=== PATIENT | male | born 1940 | race Caucasian/White ===

== ENCOUNTER 2016-07-28 08:04 | Day surgery (SDC) | payer MEDICARE ==
--- NOTE | ~2016-07-28 | EGD ---
EGD REPORT [facility] [address] [address] NAME: CATHI LI JR : 40 STATUS : REG [facility] [place] PAT#: [id number] AGE: 75 ADM/REG DATE : 07/28/16 MR#: [id number] REPORT SERV DATE: 07/28/16 DICTATED BY: ROBIN KWONG DATE: 07/28/16 REPORT STATUS : Draft [facility]ANS[facility]IBED BY: [facility] DATE: 07/28/16 Endoscopy Center Patient Name: Cathi Li Date of : 1940 Attending MD: ROBIN KWONG MD Procedure Date No Time: 07/28/2016 Procedure: Upper GI endoscopy Indications: Dysphagia, Nausea Referring MD: MYRTLE SOW Medicines: Propofol per Anesthesia Procedure: Pre-Anesthesia Assessment: - After reviewing the risks and benefits, the patient was deemed in satisfactory condition to undergo the procedure. - Prior to the procedure, a History and Physical was performed, and patient medications and allergies were reviewed. The patient's tolerance of previous anesthesia was also reviewed. The risks and benefits of the procedure and the sedation options and risks were discussed with the patient. All questions were answered, and informed consent was obtained. Prior Anticoagulants: The patient has taken no previous anticoagulant or antiplatelet agents. ASA Grade Assessment: III - A patient with severe systemic disease. After reviewing the risks and benefits, the patient was deemed in satisfactory condition to undergo the procedure. After obtaining informed consent, the endoscope was passed under direct vision. Throughout the procedure, the patient's blood pressure, pulse, and oxygen saturations were monitored continuously. The GIF [id number] was introduced through the mouth, and advanced to the pylorus. The upper GI endoscopy was performed with difficulty due to abnormal anatomy with mild pyloric stenosis and a dilated, J-shaped stomach which made pyloric intubation difficult. Successful completion of the procedure was aided by applying abdominal pressure. The patient tolerated the procedure well. Findings: A mild Schatzki ring (acquired) was found at the gastroesophageal junction. A guidewire was placed and the scope was withdrawn. Dilation was performed with a Savary dilator with mild resistance at 48 Fr. Estimated blood loss: none. A 1 cm hiatus hernia was present. A benign-appearing, intrinsic mild stenosis was found at the pylorus. This was non-traversed. It didn't seem to be too tight for intubation EGD REPORT [facility] [address] [facility] [place]. [address] NAME: CATHI LI JR : 40 STATUS : REG [facility]#: [id number] AGE: 75 ADM/REG DATE : 07/28/16 MR#: [id number] REPORT SERV DATE: 07/28/16 DICTATED BY: ROBIN KWONG DATE: 07/28/16 REPORT STATUS : Draft TRANSCRIBED BY: [facility] DATE: 07/28/16 but the looping in the stomach prevented it. The stomach was somewhat dilated and J-shaped with a small amount of retained food debris. Looping of the endoscope prevented pyloric intubation even with splinting of the abdomen. Diffuse moderate inflammation characterized by erosions and erythema was found in the duodenal bulb via a window view through the pylorus. Impression: - Mild Schatzki ring. Dilated. - Hiatus hernia. - Gastric stenosis was found at the pylorus. - Duodenitis. - Chronic NSAID and opioid use. Recommendation: - Discharge patient to home (ambulatory). - Return to previous diet with smaller, more frequent feedings. - Discontinue Aleve and other NSAID medication. - Continue present medications including Prilosec (omeprazole) 40 mg daily before meal. - Do an upper GI series at appointment to be scheduled. - Perform a colonoscopy today. - Patient has a contact number available for emergencies. The signs and symptoms of potential delayed complications were discussed with the patient. Return to normal activities tomorrow. Written discharge instructions were provided to the patient. 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 All rights reserved. The codes documented in this report are preliminary and upon paint supervisor review may be revised to meet current compliance requirements. EGD REPORT [facility] [address] [address] NAME: CATHI LI JR : 40 STATUS : REG [facility] PAT#: [id number] AGE: 75 ADM/REG DATE : 07/28/16 MR#: [id number] REPORT SERV DATE: 07/28/16 DICTATED BY: ROBIN KWONG. DATE: 07/28/16 REPORT STATUS : Draft TRANSCRIBED BY: [employer] DATE: 07/28/16 ROBIN KWONG MD 07/28/2016 10:36 AM This report has been signed electronically. Number of Addenda: 0 Note Initiated On: 07/28/2016 10:12 AM Scope Withdrawal Time 0 hours 0 minutes 0 seconds [address] [id number]
--- NOTE | ~2016-07-28 | EGD ---
EGD REPORT [facility] [address] [place] [address] NAME: CATHI LI JR : 40 STATUS : REG [facility]#: [id number] AGE: 75 ADM/REG DATE : 07/28/16 MR#: [id number] REPORT SERV DATE: 07/28/16 DICTATED BY: ROBIN KWONG DATE: 07/28/16 REPORT STATUS : Draft [facility]ANSCRIBED BY: [facility] DATE: 07/28/16 Endoscopy Center Patient Name: Cathi Li Date of : 1940 Attending MD: ROBIN KWONG MD Procedure Date No Time: 07/28/2016 Procedure: Colonoscopy Indications: Screening for colorectal malignant neoplasm, This is the patient's first colonoscopy, Incidental abdominal pain noted, Incidental constipation noted Referring MD: MYRTLE SOW Medicines: Propofol per Anesthesia Complications: No immediate complications. Estimated blood loss: None. Procedure: Pre-Anesthesia Assessment: - After reviewing the risks and benefits, the patient was deemed in satisfactory condition to undergo the procedure. - Prior to the procedure, a History and Physical was performed, and patient medications and allergies were reviewed. The patient's tolerance of previous anesthesia was also reviewed. The risks and benefits of the procedure and the sedation options and risks were discussed with the patient. All questions were answered, and informed consent was obtained. Prior Anticoagulants: The patient has taken no previous anticoagulant or antiplatelet agents. ASA Grade Assessment: III - A patient with severe systemic disease. After reviewing the risks and benefits, the patient was deemed in satisfactory condition to undergo the procedure. After I obtained informed consent, the scope was passed under direct vision. Throughout the procedure, the patient's blood pressure, pulse, and oxygen saturations were monitored continuously. The CF [id number] was introduced through the anus and advanced to the cecum, identified by appendiceal orifice and ileocecal valve. The colonoscopy was somewhat difficult due to a tortuous colon and the patient's body habitus. Successful completion of the procedure was aided by straightening and shortening the scope to obtain bowel loop reduction. The ileocecal valve and appendiceal orifice were photographed. The patient tolerated the procedure well. The quality of the bowel preparation was adequate. The bowel preparation used was an extended prep with polyethylene glycol (PEG) and magnesium citrate. Scope EGD REPORT [facility] [id number] [place]. [address] NAME: CATHI LI JR : 40 STATUS : REG [facility]#: [id number] AGE: 75 ADM/REG DATE : 07/28/16 MR#: [id number] REPORT SERV DATE: 07/28/16 DICTATED BY: ROBIN KWONG DATE: 07/28/16 REPORT STATUS : Draft TRANSCRIBED BY: [employer] DATE: 07/28/16 withdrawal time was greater than 6 minutes. Findings: The perianal and digital rectal examinations were normal. Pertinent negatives include normal sphincter tone. Non-bleeding internal hemorrhoids were found during retroflexion and were small and Grade I (internal hemorrhoids that do not prolapse). Multiple small-mouthed diverticula were found in the sigmoid colon. Diffuse melanosis was found in the entire colon. Biopsies were taken from the ascending colonwith a cold forceps for histology. Estimated blood loss: none. The exam was otherwise without abnormality. Impression: - Non-bleeding internal hemorrhoids. - Mild diverticulosis in the sigmoid colon. - Melanosis in the colon. Biopsied. - The examination was otherwise normal. - Irritable bowel syndrome with constipation. Recommendation: - Discharge patient to home (ambulatory). - Return to previous diet. - Continue present medications including MiraLax. - Await pathology results. - No repeat colonoscopy due to age. - Return to GI clinic PRN. - Patient has a contact number available for emergencies. The signs and symptoms of potential delayed complications were discussed with the patient. Return to normal activities tomorrow. Written discharge instructions were provided to the patient. Procedure Code(s): --- Professional --- 98606, Colonoscopy, flexible, proximal to splenic flexure; with biopsy, single or multiple Diagnosis Code(s): --- Professional --- K64.0, First degree hemorrhoids K58.9, Irritable bowel syndrome without diarrhea K57.30, Diverticulosis of large intestine without perforation or abscess without bleeding K63.89, Other specified diseases of intestine Z12.11, Encounter for screening for malignant neoplasm of colon CPT copyright 2013 [employer]. All rights reserved. The codes documented in this report are preliminary and upon salesperson floor coverings review may EGD REPORT [facility] [address] [address] NAME: CATHI LI JR : 40 [place]US : [place] [facility] [place]#: [id number] AGE: 75 ADM/REG DATE : 07/28/16 MR#: [id number] REPORT SERV DATE: 07/28/16 DICTATED BY: ROBIN KWONG. DATE: 07/28/16 REPORT STATUS : Draft TRANSCRIBED BY: [employer] DATE: 07/28/16 be revised to meet current compliance requirements. ROBIN KWONG MD 07/28/2016 11:00 AM This report has been signed electronically. Number of Addenda: 0 Note Initiated On: 07/28/2016 10:06 AM Scope Withdrawal Time 0 hours 6 minutes 28 seconds [address] [id number]
[~2016-07-28 08:04] MED LIST: ALEVE220 MG PO; MULTIPLE VIT PO; NORCO1 TAB PO; PROSCAR5 PO; ZESTRIL20 MG PO; ZOCOR40 PO
== END 2016-07-28 23:59 | disposition home or self-care (01) ==
LOC: DMU 08:04
PROVIDERS: Internal Medicine Gastroenterology
PROC: 0D748ZZ Dilation of Esophagogastric Junction, Via Natural or Artificial Opening Endoscopic (ICD-10-PCS; principal; 2016-07-28 10:15)
DX: Z12.11 Encounter for screening for malignant neoplasm of colon (principal); K57.30 Diverticulosis of large intestine without perforation or abscess without bleeding; K64.0 First degree hemorrhoids; K58.9 Irritable bowel syndrome, unspecified; K63.89 Other specified diseases of intestine; K44.9 Diaphragmatic hernia without obstruction or gangrene; K29.80 Duodenitis without bleeding; K22.2 Esophageal obstruction; K31.1 Adult hypertrophic pyloric stenosis; R13.10 Dysphagia, unspecified; Z88.5 Allergy status to narcotic agent
CPT/HCPCS: 88305